=== PATIENT | male | born 1950 | race Caucasian/White ===

== ENCOUNTER 2018-03-03 08:48 | Day surgery (SDC) | payer OTHER ==
[2018-03-03] MEDS ORDERED: LIDOCAINE-MPF 1%, 5ML ONE (09:49)
== END 2018-03-03 10:35 | disposition home or self-care (01) ==
LOC: CACL 08:48
PROVIDERS: ATTEND Internal Medicine Cardiovascular Disease
DX: R55 Syncope and collapse (principal); I10 Essential (primary) hypertension; E78.2 Mixed hyperlipidemia; I47.1 Supraventricular tachycardia; N28.9 Disorder of kidney and ureter, unspecified; Z98.890 Other specified postprocedural states
CPT/HCPCS: 33284

== ENCOUNTER → 2019-04-26 | Outpatient (CLI) | payer OTHER ==
[~2019-04-26] MED LIST: GABA300C10 PO; METO-93 PO; lovastatin PO; temazepam PO
[2019-04-26 11:31] LABS: BASOPHILS # (AUTO) 0.09 x10^3/uL (0-0.1); BASOPHILS % (AUTO) 1 % (0-1); EOSINOPHILS # (AUTO) 1.37 x10^3/uL (0-0.4); EOSINOPHILS % (AUTO) 17 % (1-7); LYMPHOCYTES # (AUTO) 1.54 x10^3/uL (1-3.4); LYMPHOCYTES % (AUTO) 20 % (22-44); MD NO; MEAN CORPUSCULAR HEMOGLOBIN 30.5 pg (27.5-34.5); MEAN CORPUSCULAR VOLUME 92.5 fL (81-97); MEAN PLATELET VOLUME 8.1 fL (7.4-10.4); MONOCYTES # (AUTO) 0.92 x10^3/uL (0.2-0.8); MONOCYTES % (AUTO) 12 % (2-9); NEUTROPHILS # (AUTO) 3.97 x10^3/uL (1.8-6.8); NEUTROPHILS % (AUTO) 50 % (42-75); PLATELET COUNT 258 x10^3/uL (130-400); RED BLOOD COUNT 4.62 x10^6/uL (4.38-5.82); RED CELL DISTRIBUTION WIDTH 15.7 % (9.4-14.8)
[2019-04-26 11:35] LABS: ANION GAP 4 mmol/L (5-15); CALCIUM 8.7 mg/dL (8.5-10.1); CHLORIDE 113 mmol/L (98-107); CREATININE 1.49 mg/dL (0.7-1.3); INTERNATIONAL NORMALIZED RATIO 0.95 (0.93-1.1)
[2019-04-26 11:40] LABS: MICROSCOPIC INDICATED
[2019-04-26 11:45] LABS: CULTURE INDICATED? NO
== END | disposition home or self-care (01) ==
LOC: STAR 09:59
PROVIDERS: ATTEND Neurological Surgery
DX: Z01.818 Encounter for other preprocedural examination (principal); T85.698A Other mechanical complication of other specified internal prosthetic devices, implants and grafts, initial encounter; I10 Essential (primary) hypertension; Z87.891 Personal history of nicotine dependence; Y83.8 Other surgical procedures as the cause of abnormal reaction of the patient, or of later complication, without mention of misadventure at the time of the procedure; Y92.89 Other specified places as the place of occurrence of the external cause
CPT/HCPCS: 36415; 71046; 80048; 81001; 85025; 85610; 85730; 93005

== ENCOUNTER 2019-05-12 05:18 | Inpatient (IN) | payer OTHER, MEDICARE ==
[~2019-05-12] VITALS: Ht 182.9 cm; Wt 94.0 kg
[2019-05-12] MEDS ORDERED: ATOR10TA9 PO (05:56)
[2019-05-12] MEDS ORDERED: TAMS-11 PO (05:56)
[2019-05-12] MEDS ORDERED: TEMA30CA PO (05:56)
[2019-05-12 05:58] VITALS: BP 143/92
[2019-05-12] MEDS ORDERED: BACITRACIN 50,000 UNIT ONE (06:52)
[2019-05-12] MEDS ORDERED: BUPIVACAINE/PF 0.5% ONE (06:52)
[2019-05-12] MEDS ORDERED: EPINEPHRINE 1 MG/ML, 1ML ONE (06:52)
[2019-05-12] MEDS ORDERED: THROMBIN 5,000 UNIT VIAL TP ONE (06:53)
[2019-05-12] MEDS ORDERED: FENTANYL PF 250 MCG/5ML ONE (07:14)
[2019-05-12] MEDS ORDERED: PROPOFOL 50 ML ONE (07:15)
[2019-05-12] MEDS ORDERED: CEFAZOLIN 1,000 MG ONE (08:20)
[2019-05-12] MEDS ORDERED: DEXAMETHASONE 4 MG/ML, 1ML ONE (08:20)
[2019-05-12] MEDS ORDERED: PROPOFOL 10 MG/ML, 20ML ONE (08:20)
[2019-05-12] MEDS ORDERED: ONDANSETRON 2MG/ML, 2ML ONE (08:20)
[2019-05-12] MEDS ORDERED: SUCCINYLCHOLINE 20 MG/ML, 10ML ONE (08:20)
[2019-05-12] MEDS ORDERED: PROMETHAZINE 25 MG/ML, 1ML IV PRN (08:30)
[2019-05-12] MEDS ORDERED: METOPROLOL 1 MG/ML, 5ML IV PRN (08:30)
[2019-05-12] MEDS ORDERED: ALBUTEROL/IPRATROPIUM 2.5MG/0.5MG, 3 ML NPPB PRN (08:30)
[2019-05-12] MEDS ORDERED: hydrALAzine 20 MG/ML, 1ML IV PRN (08:30)
[2019-05-12] MEDS ORDERED: FENTANYL PF 100 MCG/2ML IV PRN (08:30)
[2019-05-12] MEDS ORDERED: HYDROmorphone 2 MG/ML, 1ML IVPush PRN (08:30)
[2019-05-12] MEDS ORDERED: MEPERIDINE/PF 25MG/ML,1ML IVPush PRN (08:30)
[2019-05-12] MEDS ORDERED: ACETAMINOPHEN 325 MG TABLET PO PRN (08:30)
[2019-05-12] MEDS ORDERED: MIDAZOLAM 1 MG/ML, 2ML IV PRN (08:30)
[2019-05-12] MEDS ORDERED: GABAPENTIN 300 MG CAPSULE PO SCH (09:00)
[2019-05-12] MEDS ORDERED: OXYcodone/APAP 5/325MG PO (09:09)
[2019-05-12] MEDS ORDERED: TIZA2TAB2 PO (09:09)
[2019-05-12] MEDS ORDERED: OXYcodone 5 MG/5 ML ORAL.SOL UDC ONE ×2 (09:19→10:00)
[2019-05-12] MEDS: OXYcodone 5 MG/5 ML ORAL.SOL UDC PO PRN ×2 (09:24→10:01)
[2019-05-12] MEDS ORDERED: TIZANIDINE 4MG TABLET PO PRN (09:30)
[2019-05-12] MEDS ORDERED: OXYcodone/APAP 5/325MG TABLET PO PRN (09:30)
[2019-05-12] MEDS ORDERED: hydrALAzine 20 MG/ML, 1ML ONE (09:32)
[2019-05-12] MEDS ORDERED: FENTANYL PF 100 MCG/2ML ONE (09:34)
== END 2019-05-12 11:50 | disposition home or self-care (01) | DRG 909 ==
LOC: 4NE 05:18 → DCLOUNGE 11:44
PROVIDERS: ADMIT Neurological Surgery; ATTEND Neurological Surgery
PROC: 0PP304Z Removal of Internal Fixation Device from Cervical Vertebra, Open Approach (ICD-10-PCS; principal; 2019-05-12 07:30)
DX: T85.698A Other mechanical complication of other specified internal prosthetic devices, implants and grafts, initial encounter (principal); M54.12 Radiculopathy, cervical region; I10 Essential (primary) hypertension; E78.5 Hyperlipidemia, unspecified; M19.90 Unspecified osteoarthritis, unspecified site; Z82.49 Family history of ischemic heart disease and other diseases of the circulatory system; Z84.1 Family history of disorders of kidney and ureter; Y83.8 Other surgical procedures as the cause of abnormal reaction of the patient, or of later complication, without mention of misadventure at the time of the procedure; Y92.89 Other specified places as the place of occurrence of the external cause
CPT/HCPCS: 72040; S0020; 95938; 95941; J0171; J0690; J1100; J2405; J2704; J3010; J0330

== ENCOUNTER 2019-06-30 11:48 | Emergency (ER) | payer OTHER ==
[~2019-06-30] VITALS: Ht 185.4 cm; Wt 95.3 kg
[~2019-06-30 11:48] MED LIST changes: +ATOR10TA9 PO; +OXYcodone/APAP 5/325MG PO; +TAMS-11 PO; +TEMA30CA PO; +TIZA2TAB2 PO
[2019-06-30 12:50] LABS: BASOPHILS # (AUTO) 0.01 x10^3/uL (0-0.1); BASOPHILS % (AUTO) 0 % (0-1); EOSINOPHILS # (AUTO) 0.12 x10^3/uL (0-0.4); EOSINOPHILS % (AUTO) 1 % (1-7); LYMPHOCYTES # (AUTO) 0.67 x10^3/uL (1-3.4); LYMPHOCYTES % (AUTO) 7 % (22-44); MD NO; MEAN CORPUSCULAR HEMOGLOBIN 30.5 pg (27.5-34.5); MEAN CORPUSCULAR HGB CONC 33.6 g/dL (33.2-36.2); MEAN CORPUSCULAR VOLUME 90.6 fL (81-97); MEAN PLATELET VOLUME 7.8 fL (7.4-10.4); MONOCYTES # (AUTO) 0.83 x10^3/uL (0.2-0.8); MONOCYTES % (AUTO) 8 % (2-9); NEUTROPHILS # (AUTO) 8.27 x10^3/uL (1.8-6.8); NEUTROPHILS % (AUTO) 84 % (42-75); PLATELET COUNT 181 x10^3/uL (130-400); RED BLOOD COUNT 4.51 x10^6/uL (4.38-5.82); RED CELL DISTRIBUTION WIDTH 15.9 % (9.4-14.8)
[2019-06-30 13:01] LABS: ALBUMIN 3.3 g/dL (3.4-5.0); ANION GAP 5 mmol/L (5-15); CALCIUM 8.5 mg/dL (8.5-10.1); CHLORIDE 111 mmol/L (98-107); CREATININE 1.64 mg/dL (0.7-1.3)
[2019-06-30 13:23] VITALS: BP 170/94
--- NOTE | 2019-06-30 13:25 | NUR ---
PT WITH C/O SHORTNESS OF BREATH, INCREASED FROM YESTERDAY. PT POSITIVE FOR INFLUENZA A PER PT, CONFIRMED AT [facility] YESTERDAY. PT SATING 93 RA. PT TO CONT PULSE OX AND BP MONITOR
== END 2019-06-30 15:45 | disposition home or self-care (01) ==
LOC: ED 15:01
DX: J10.1 Influenza due to other identified influenza virus with other respiratory manifestations (principal); I21.9 Acute myocardial infarction, unspecified; R53.1 Weakness
CPT/HCPCS: 36415; 71046; 80048; 82040; 85025; 93005; 99284